=== PATIENT | male | born 2000 | race African-American/Black ===

== ENCOUNTER 2022-04-06 20:47 | Inpatient (IN) ==
[2022-04-06 21:33] LABS: BUN Creatinine Ratio 16.9 (10-20); Calcium 10.9 mg/dl (8.5-10.1); Creatinine Clr Calc Pharmacy 53.7 ml/min; Est GFR (African American) 45.9 ml/min; Est GFR (Non-African American) 39.6 ml/min
[2022-04-06 21:34] LABS: Bilirubin,Total 1.6 mg/dl (0.2-1.0); Total Protein 9.7 gm/dl (6.0-8.3)
[2022-04-06 21:44] LABS: Albumin Globulin Ratio 1.9 (0.9-2); Albumin Level 6.4 gm/dl (3.4-5.0); Globulin 3.3 gm/dl (2.5-4.0)
[2022-04-06] MEDS ORDERED: HYDROmorphone INJ 1 MG/ML SYRINGE IV STA (21:44)
[2022-04-06] MEDS ORDERED: SODIUM CHLORIDE 0.9% 1000ML 2,000 ML IV ONE (21:44)
[2022-04-06] MEDS ORDERED: diphenhydrAMINE 50 MG/ML VIAL IV STA (21:44)
[2022-04-06] MEDS ORDERED: PROCHLORPERAZINE 1 ML IV ONE (21:44)
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
[2022-04-06 22:21] LABS: Hematocrit (blood only) 49.4 % (40.1-51.0); Hemoglobin 18.9 g/dl (14.0-18.0); Mean Corpuscular Hemoglobin 32.1 pg (25.0-34.0); Mean Corpuscular Hgb Conc 38.3 g/dL (32.0-36.0); Mean Platelet Volume 11.2 fL (9.4-12.4); Platelet Count 295 K/uL (130-400); RDW Coefficient of Variation 12.1 % (11.5-14.5); RDW Standard Deviation 36.8 fL (36.4-46.3); Red Blood Count 5.88 M/uL (4.63-6.08); White Blood Count 23.48 K/ul (4.8-10.8)
[2022-04-06 22:22] LABS: Basophils # (auto) 0.04 K/uL (0-0.2); Basophils % (auto) 0.2 %; Eosinophils # (auto) 0.01 K/uL (0-0.50); Immature Granulocytes % (auto) 0.9 %; Lymphocytes # (auto) 3.03 K/uL (1.2-3.4); Lymphocytes % (auto) 12.9 %; Monocytes # (auto) 2.79 K/uL (0.24-0.82); Monocytes % (auto) 11.9 %; Neutrophils # (auto) 17.41 K/uL (1.4-6.5); Neutrophils % (auto) 74.1 %
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
[2022-04-06] MEDS ORDERED: PIPERACILLIN/TAZOBACTAM 4.5 GM/120 ML BAG IV ONE (22:28)
--- NOTE | 2022-04-06 23:39 | CT Scan Report ---
CT chest diagnostic wo con CT DOSE: 189.19 mGy.cm CLINICAL HISTORY: 21 years-old Male with vomiting, pneumomediastinum on ct a/p. Sepsis. Acute nausea with vomiting. TECHNIQUE: Multiaxial CT images of the chest were performed without contrast. A dose lowering techni que was utilized adhering to the principles of ALARA. COMPARISON: CT abdomen and pelvis of same day FINDINGS: There is a battery pack within the subcutaneous left anterior chest with partially imaged l shweta extending superiorly outside the [id number]. Unremarkable thyroid. Residual thymic tissue of the anterior mediastinum. There is no lymphadenopathy. The heart is normal in size without pericardia l effusion. Unremarkable thoracic aorta and pulmonary artery. Small to moderate amount of pneumomedia stinum is noted, probably involving the middle mediastinum tracking within the bronchi within the catalina g bases. No definite acute soft tissue injury identified. No pneumothorax, pleural effusion, airspace consolidation or overt pulmonary edema. There are a few t iny subpleural blebs within the lung apices. The central airways are patent. Mild nonspecific distal esophageal wall thickening. The imaged upper abdomen is otherwise unremarkable. Mild asymmetric soft tissue prominence of the left sternocleidomastoid. No acute fracture. IMPRESSION: 1. Small to moderate amount of pneumomediastinum of unknown etiology. This is likely from an occult b ronchoalveolar injury. There is mild distal esophageal wall thickening, however there is no periesoph ageal stranding or pleural effusion identified. 2. No pneumothorax. ACT 112: Negative or not required by law. Electronically signed by: Leland Aragon M.D. 04/06/2022 11:37 PM
[2022-04-06] MEDS: SODIUM CHLORIDE 0.9% 1000ML 1,000 ML IV SCH (23:45)
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
[2022-04-07] MEDS ORDERED: ACETAMINOPHEN 325 MG TAB PO PRN (02:41)
[2022-04-07] MEDS ORDERED: Patient's ALLERGY Info needs ENTERED STA (04:47)
[2022-04-07] MEDS ORDERED: POTASSIUM CHLORIDE 10 MEQ TABCR PO STA (04:51)
[2022-04-07] MEDS: ONDANSETRON INJ 2 MG/ML 2 ML VIAL IV PRN (06:40)
[2022-04-07 07:20] LABS: Basophils # (auto) 0.05 K/uL (0-0.2); Basophils % (auto) 0.3 %; Eosinophils # (auto) 0.02 K/uL (0-0.50); Eosinophils % (auto) 0.1 %; Hematocrit (blood only) 42.9 % (40.1-51.0); Hemoglobin 15.4 g/dl (14.0-18.0); Immature Granulocytes # (auto) 0.08 K/uL (0.00-0.02); Immature Granulocytes % (auto) 0.5 %; Lymphocytes # (auto) 4.61 K/uL (1.2-3.4); Lymphocytes % (auto) 30.6 %; Mean Corpuscular Hemoglobin 31.2 pg (25.0-34.0); Mean Corpuscular Hgb Conc 35.9 g/dL (32.0-36.0); Mean Platelet Volume 10.4 fL (9.4-12.4); Monocytes # (auto) 1.75 K/uL (0.24-0.82); Monocytes % (auto) 11.6 %; Neutrophils # (auto) 8.57 K/uL (1.4-6.5); Neutrophils % (auto) 56.9 %; Platelet Count 278 K/uL (130-400); RDW Coefficient of Variation 12.1 % (11.5-14.5); RDW Standard Deviation 38.8 fL (36.4-46.3); Red Blood Count 4.93 M/uL (4.63-6.08); White Blood Count 15.08 K/ul (4.8-10.8)
[2022-04-07 07:36] LABS: INR 1.1 (0.9-1.1); Prothrombin Time 11.9 Seconds (9.0-12.0)
[2022-04-07] MEDS: SODIUM CHLORIDE 0.9% 1000ML 1,000 ML IV SCH (08:04)
[2022-04-07 08:19] LABS: Albumin Globulin Ratio 1.8 (0.9-2); Albumin Level 4.8 gm/dl (3.4-5.0); BUN Creatinine Ratio 22.1 (10-20); Bilirubin,Total 1.7 mg/dl (0.2-1.0); Creatinine Clr Calc Pharmacy 85.4 ml/min; Est GFR (African American) 81.5 ml/min; Est GFR (Non-African American) 70.3 ml/min; Globulin 2.7 gm/dl (2.5-4.0); Potassium 3.2 mmol/L (3.5-5.1); Total Protein 7.5 gm/dl (6.0-8.3)
[2022-04-07] MEDS: PROCHLORPERAZINE 10 MG in SYRINGE 8 ML IV PRN (08:43)
[2022-04-07] MEDS ORDERED: cefTRIAXone SODIUM 1,000 MG in DEXTROSE 5% 50 ML IV SCH (09:00)
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
[2022-04-07] MEDS ORDERED: MoRPHine SULFATE 4 MG/ML 1 ML CARP\\VIAL IV STA (11:45)
[2022-04-07] MEDS ORDERED: ACETAMINOPHEN 1,000 MG/100 ML VIAL IV PRN (14:58)
[2022-04-07] MEDS ORDERED: FAMOTIDINE 20 MG in SYRINGE 3 ML IV ONE (15:15)
[2022-04-07] MEDS: ONDANSETRON INJ 2 MG/ML 2 ML VIAL IV SCH ×2 (15:50→20:33)
[2022-04-07] MEDS: LACTATED RINGER'S 1,000 ML IV SCH (15:50)
[2022-04-07] MEDS: DICLOFENAC SOD 1% GEL 100 GM TUBE EXT SCH ×2 (17:58→20:36)
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
[2022-04-07] MEDS: MoRPHine SULFATE 4 MG/ML 1 ML CARP\\VIAL IV PRN (20:01)
[2022-04-07] MEDS: DIVALPROEX EXTENDED RELEASE 250 MG TABCR PO SCH (20:33)
[2022-04-07] MEDS: PANTOprazole 40 MG TAB PO SCH (20:33)
[2022-04-07] MEDS: FAMOTIDINE 20 MG in SYRINGE 3 ML IV SCH (20:33)
[2022-04-08] MEDS ORDERED: diphenhydrAMINE 50 MG/ML VIAL IV ONE (00:06)
[2022-04-08] MEDS: LACTATED RINGER'S 1,000 ML IV SCH ×4 (01:00→22:15)
[2022-04-08] MEDS: ONDANSETRON INJ 2 MG/ML 2 ML VIAL IV SCH ×2 (02:54→08:41)
[2022-04-08 06:16] LABS: Basophils # (auto) 0.02 K/uL (0-0.2); Basophils % (auto) 0.2 %; Eosinophils # (auto) 0.07 K/uL (0-0.50); Eosinophils % (auto) 0.8 %; Hematocrit (blood only) 36.4 % (40.1-51.0); Hemoglobin 12.9 g/dl (14.0-18.0); Immature Granulocytes # (auto) 0.03 K/uL (0.00-0.02); Immature Granulocytes % (auto) 0.3 %; Lymphocytes # (auto) 4.37 K/uL (1.2-3.4); Lymphocytes % (auto) 49.2 %; Mean Corpuscular Hemoglobin 31.7 pg (25.0-34.0); Mean Corpuscular Hgb Conc 35.4 g/dL (32.0-36.0); Mean Corpuscular Volume 89.4 fL (80.0-100.0); Mean Platelet Volume 10.3 fL (9.4-12.4); Monocytes % (auto) 10.1 %; Neutrophils % (auto) 39.4 %; Platelet Count 193 K/uL (130-400); RDW Coefficient of Variation 11.9 % (11.5-14.5); RDW Standard Deviation 39.2 fL (36.4-46.3); Red Blood Count 4.07 M/uL (4.63-6.08); White Blood Count 8.89 K/ul (4.8-10.8)
[2022-04-08 06:55] LABS: BUN Creatinine Ratio 18.8 (10-20); Calcium 8.5 mg/dl (8.5-10.1); Creatinine Clr Calc Pharmacy 143.4 ml/min; Est GFR (African American) 142.3 ml/min; Est GFR (Non-African American) 122.8 ml/min; Potassium 3.4 mmol/L (3.5-5.1)
--- NOTE | 2022-04-08 07:20 | Electrocardiogram Report ---
Test Reason : Blood Pressure : / mmHG Vent. Rate : 056 BPM Atrial Rate : 056 BPM P-R Int : 142 ms QRS Dur : 090 ms QT Int : 430 ms P-R-T Axes : 083 085 068 degrees QTc Int : 414 ms Sinus bradycardia Nonspecific ST abnormality Abnormal ECG No previous ECGs available Confirmed by Ayo Carmona ([id number]) on 04/08/2022 7:19:36 AM Referred By: REFERRED SELF Confirmed By:Valentino Carmona
[2022-04-08] MEDS: DICLOFENAC SOD 1% GEL 100 GM TUBE EXT SCH ×4 (08:41→21:27)
[2022-04-08] MEDS: FAMOTIDINE 20 MG in SYRINGE 3 ML IV SCH ×2 (08:41→21:27)
[2022-04-08] MEDS ORDERED: diphenhydrAMINE Capsule 25 MG CAP PO PRN (09:24)
[2022-04-08] MEDS: PANTOprazole 40 MG TAB PO SCH ×2 (10:32→21:28)
[2022-04-08] MEDS: NICOTINE 21 MG/24 HR TDSY TD SCH (10:32)
[2022-04-08] MEDS: ONDANSETRON INJ 2 MG/ML 2 ML VIAL IV PRN ×2 (14:13→21:29)
--- NOTE | 2022-04-08 18:11 | Hospitalist Progress Note ---
Date of Service April 08, 2022 Assessment & Plan (1) Intractable nausea and vomiting: Plan: Differential appears to be peptic ulcer disease versus cannabis hyperemesis versus gastroparesis (versus some elements of any or all combined) -- For now symptom control is improving, continue current care but advance diet. Consult GI for evaluation and consideration of EGD. If EGD performed and negative, then would probably proceed to nuclear medicine gastric emptying s tudy, and if those are both negative, then likely arrive at a diagnosis of cannabis hyperemesis (to the best i can tell on brief literature review, it does not appear that cannabis hyperemesis commonly causes gastroparesis - so would look at them as different pathologies). Discussed all of this with patient/significant otherdiscussed differentials and at least moderate detail, and discussed that once we arrived at a final diagnosis we would certainly discuss in more depth. He/she both expressed a good understanding of all of above as well as appreciation for care. -- Continue current acid suppression, nausea control, pain controlgiven that he is doing better. (2) Renal insufficiency: Plan: Creatinine 2.25 with unknown baseline but suspect this is all acute renal failure due to dehydrationespecially given his improvement with IV fluids. Continue fluid support until his p.o. intake improves more. Creatinine now 0.85 (3) Pneumomediastinum: Plan: Small to moderate pneumomediastinum noted on CT Pain control, supportive care, time. Esophagram to rule out any sort of tear/leak type pathophysiology to be done tomorrowwas unable to be done yesterday or today. (4) Trigger point of abdomen: Plan: Given the location and the severe tenderness of his trigger point, I suspect that it has a "perpetuating" affect on his nausea and abdominal painalthough I doubt it is the "root cause". At any rate, it is firm and often tender enough that I suspect if we do not treat it concomitantly he will probably have subpar resolution of symptoms. Suspect that it is caused by essentially a constant viscerosomatic reflex from what ever the final etiology of his intractable nausea and vomiting turns out to be; from their somatic visceral reflux from the trigger points would be perpetuating the nausea. For now Voltaren gel 4 times daily, anticipate injecting in the near future if his symptoms do not improve enough. Discussed this again today (5) Seizure disorder: Plan: Valproic acid unknown dosing with subtherapeutic level at 30. will order at low dosing for now until home dosing can be confirmed has brain stimulator device (6) Rhabdomyolysis: Plan: Creatinine kinase 1313 initially - improving. very mild. doubt this caused the renal insufficiency (was likely prerenal mechanism from dehydration) (7) Leukocytosis: Plan: no clear s/s or focused findings to suggest bacterial infection - suspect demargination from vomiting/physiologic stress. White count continues to improve off of antibiotics. Continue to follow Plan DVT proph - ambulation Admission and Anticipated Discharge Date Admission Date: April 07, 2022 Subjective Feeling better currently. Nausea and vomiting has calm downhas not vomited since probably yesterday. Tolerating clear liquids well and wonders if he could try normal food. Really appreciative of care, work-up, differentials, etc. Significant other presentupdated her to the best of my ability and to both her and patient's satisfaction. Overall acutely he is feeling better. Chronically they certainly both harbor concerns given that this has been going on for quite a while. His significant other actually points out that while he remembered yesterday this largely starting in July, she remembered actually to a degree he was already struggling with nausea and vomiting issues as far back as April 2021. Review of Systems Review of Systems: All systems reviewed & are unremarkable except as noted in HPI & below Physical Exam Physical Exam: In general he is awake and alert pleasant no distress. HEENT normocephalic atraumatic mucous membranes moist. Breathing unlabored no accessory muscle use good effort. Skin shows no rashes no pallor or icterus. Neuro without focal deficits. Results & Data Results & Data ([facility]) Vital Signs (Past 12 Hours) Vital Signs Temp Pulse Pulse Resp BP Pulse Ox O2 Del Method 04/08/22 15:13 98.1 F 62 17 133/74 99 Room Air 04/08/22 11:04 97.9 F 63 18 126/77 99 Room Air 04/08/22 08:29 Room Air 04/08/22 07:30 58 L 04/08/22 07:24 98.8 F 65 16 113/71 97 Room Air PG Care Time/CCT Total # of Minutes Spent Total Time Spent with Patient: Total time spent is greater than 50% in coordination of care (as documented) at patient's floor/unit and/or counseling patient: Prolonged Care Time Time in approximately 12:40 PM, time out approximately 1:20 PMgreater than 30 minutes [id number]. Coding Level of Care Code 66030 Subseq Hosp Care Lvl 3 Diagnoses Intractable nausea and vomiting R11.2 Renal insufficiency N28.9 Pneumomediastinum J98.2 Trigger point of abdomen R10.9 Seizure disorder G40.909 Rhabdomyolysis M62.82 Rhabdomyolysis type: non-traumatic Leukocytosis D72.829 (1) Rhabdomyolysis Rhabdomyolysis type: non-traumatic Qualified Code(s): M62.82 - Rhabdomyolysis
--- NOTE | 2022-04-08 18:15 | Billing Data ---
Date of Service April 08, 2022 Coding Level of Care Code 27596 Prolonged Care (int'l)
--- NOTE | 2022-04-08 18:38 | Communication Note ---
Date of Service: April 08, 2022 Nursing noted that patient reported bloody bowel movement. Otherwise appears to be stable. Adds another reason for endoscopic work-up. Prior red blood per rectumfollow hemodynamics, follow CBC, GI eval, anticipate endoscopic work-up.
[2022-04-08] MEDS: MoRPHine SULFATE 4 MG/ML 1 ML CARP\\VIAL IV PRN (18:48)
[2022-04-08] MEDS: DIVALPROEX EXTENDED RELEASE 250 MG TABCR PO SCH (21:27)
[2022-04-09] MEDS: PROCHLORPERAZINE 10 MG in SYRINGE 8 ML IV PRN (01:04)
[2022-04-09] MEDS: LACTATED RINGER'S 1,000 ML IV SCH ×2 (06:03→14:15)
[2022-04-09 06:31] LABS: Basophils # (auto) 0.03 K/uL (0-0.2); Basophils % (auto) 0.3 %; Eosinophils # (auto) 0.11 K/uL (0-0.50); Eosinophils % (auto) 1.2 %; Hemoglobin 12.6 g/dl (14.0-18.0); Immature Granulocytes # (auto) 0.03 K/uL (0.00-0.02); Immature Granulocytes % (auto) 0.3 %; Lymphocytes # (auto) 4.03 K/uL (1.2-3.4); Lymphocytes % (auto) 45.5 %; Mean Corpuscular Hemoglobin 31.2 pg (25.0-34.0); Mean Corpuscular Volume 89.1 fL (80.0-100.0); Mean Platelet Volume 10.6 fL (9.4-12.4); Monocytes # (auto) 0.76 K/uL (0.24-0.82); Monocytes % (auto) 8.6 %; Neutrophils % (auto) 44.1 %; Platelet Count 198 K/uL (130-400); RDW Coefficient of Variation 11.7 % (11.5-14.5); RDW Standard Deviation 37.5 fL (36.4-46.3); Red Blood Count 4.04 M/uL (4.63-6.08); White Blood Count 8.86 K/ul (4.8-10.8)
[2022-04-09 06:59] LABS: BUN Creatinine Ratio 11.5 (10-20); Calcium 8.5 mg/dl (8.5-10.1); Creatinine Clr Calc Pharmacy 156.3 ml/min; Est GFR (African American) 147.5 ml/min; Est GFR (Non-African American) 127.2 ml/min; Potassium 3.3 mmol/L (3.5-5.1)
--- NOTE | 2022-04-09 07:13 | Hospitalist Progress Note ---
Date of Service April 09, 2022 Assessment & Plan (1) Intractable nausea and vomiting: Plan: Differential appears to be peptic ulcer disease versus cannabis hyperemesis versus gastroparesis (versus some elements of any or all combined) -- For now symptom control is improving, continue current care but advance diet. Consult GI for evaluation and consideration of EGD. If EGD performed and negative, then would probably proceed to nuclear medicine gastric emptying study, and if those are both negative, then likely arrive at a diagnosis of cannabis hyperemesis (to the best i can tell on brief literature review, it does not appear that cannabis hyperemesis commonly causes gastroparesis - so would look at them as different pathologies). Discussed all of this with patient/significant otherdiscussed differentials and at least moderate detail, and discussed that once we arrived at a final diagnosis we would certainly discuss in more depth. He/she both expressed a good understanding of all of above as well as appreciation for care. -- Continue current acid suppression, nausea control, pain controlgiven that he is doing better. (2) Renal insufficiency: Plan: Creatinine 2.25 with unknown baseline but suspect this is all acute renal failure due to dehydrationespecially given his improvement with IV fluids. Continue fluid support until his p.o. intake improves more. Creatinine now 0.85 (3) Pneumomediastinum: Plan: Small to moderate pneumomediastinum noted on CT Pain control, supportive care, time. Esophagram to rule out any sort of tear/leak type pathophysiology - done 04/09. [] no evidence of esophageal injury (4) Trigger point of abdomen: Plan: Given the location and the severe tenderness of his trigger point, I suspect that it has a "perpetuating" affect on his nausea and abdominal painalthough I doubt it is the "root cause". At any rate, it is firm and often tender enough that I suspect if we do not treat it concomitantly he will probably have subpar resolution of symptoms. Suspect that it is caused by essentially a constant viscerosomatic reflex from what ever the final etiology of his intractable nausea and vomiting turns out to be; from their somatic visceral reflux from the trigger points would be perpetuating the nausea. For now Voltaren gel 4 times daily, anticipate injecting in the near future if his symptoms do not improve enough. (5) Seizure disorder: Plan: Valproic acid unknown dosing with subtherapeutic level at 30. will order at low dosing for now until home dosing can be confirmed has brain stimulator device (6) Rhabdomyolysis: Plan: Creatinine kinase 1313 initially - improving. very mild. doubt this caused the renal insufficiency (was likely prerenal mechanism from dehydration) (7) Leukocytosis: Plan: no clear s/s or focused findings to suggest bacterial infection - suspect demarg ination from vomiting/physiologic stress. White count continues to improve off of antibiotics. Continue to follow Plan DVT proph - ambulation Admission and Anticipated Discharge Date Admission Date: April 07, 2022 Subjective Patient is doing okay today. He did have some abdominal discomfort overnight, relieved by PRN pain meds. Patient has been tolerating his diet. Ready for procedure this AM. GI chat Review of Systems Review of Systems: See above. Physical Exam Physical Exam: well appearing male in NAD resp: CTAB no increased work of breathing cv: RRR no murmurs rubs or gallops abd: soft, nontender Psychiatric: A+Ox3, euthymic affect Results & Data Results & Data ([facility]) Vital Signs (Past 12 Hours) Vital Signs Temp Pulse BP Pulse Ox O2 Del Method 04/08/22 21:57 37.4 C 63 135/78 100 Room Air Laboratory Results 04/09/22 04/09/22 Range/Units 05:34 05:34 WBC 8.86 (4.8-10.8) K/ul RBC 4.04 L (4.63-6.08) M/uL Hgb 12.6 L (14.0-18.0) g/dl Hct 36.0 L (40.1-51.0) % MCV 89.1 (80.0-100.0) fL MCH 31.2 (25.0-34.0) pg MCHC 35.0 (32.0-36.0) g/dL RDW Std Deviation 37.5 (36.4-46.3) fL RDW Coeff of Rosalia 11.7 (11.5-14.5) % Plt Count 198 (130-400) K/uL MPV 10.6 (9.4-12.4) fL Immature Gran % (Auto) 0.3 % Neut % (Auto) 44.1 % Lymph % (Auto) 45.5 % [place] % (Auto) 8.6 % Eos % (Auto) 1.2 % Baso % (Auto) 0.3 % Neut # (Auto) 3.90 (1.4-6.5) K/uL Lymph # (Auto) 4.03 H (1.2-3.4) K/uL [place] # (Auto) 0.76 (0.24-0.82) K/uL Eos # (Auto) 0.11 (0-0.50) K/uL Baso # (Auto) 0.03 (0-0.2) K/uL Immature Gran # (Auto) 0.03 H (0.00-0.02) K/uL Sodium 141 (136-145) mmol/L Potassium 3.3 L (3.5-5.1) mmol/L Chloride 106 (98-107) mmol/L Carbon Dioxide 31 (21-32) mmol/L Anion Gap 4 (3-11) BUN 9 (6-23) mg/dl Creatinine 0.78 (0.6-1.4) mg/dl Est Cr Clr Drug Dosing 156.3 ml/min Est GFR ( Amer) 147.5 ml/min Est GFR (Non-Af Amer) 127.2 ml/min BUN/Creatinine Ratio 11.5 (10-20) Glucose 105 H (70-99(Fasting)) mg/dl Calcium 8.5 (8.5-10.1) mg/dl Diagnostic Findings FINDINGS: The patient swallowed 150 cc of water-soluble contrast. The esophagus is normal in course, caliber, motility. No extraluminal contrast to suggest a leak/perforation. Left upper chest implanted device is noted. IMPRESSION: No evidence for esophageal injury. (1) Rhabdomyolysis Rhabdomyolysis type: non-traumatic Qualified Code(s): M62.82 - Rhabdomyolysis
[2022-04-09] MEDS: MoRPHine SULFATE 4 MG/ML 1 ML CARP\\VIAL IV PRN (07:23)
[2022-04-09] MEDS: NICOTINE 21 MG/24 HR TDSY TD SCH (07:29)
[2022-04-09] MEDS: DICLOFENAC SOD 1% GEL 100 GM TUBE EXT SCH ×2 (07:30→13:11)
[2022-04-09] MEDS: PANTOprazole 40 MG TAB PO SCH (07:30)
[2022-04-09] MEDS ORDERED: POTASSIUM CHLORIDE CRTAB 20 MEQ TABCR PO STA (07:36)
[2022-04-09] MEDS: FAMOTIDINE 20 MG in SYRINGE 3 ML IV SCH (08:40)
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
[2022-04-09] MEDS: ONDANSETRON INJ 2 MG/ML 2 ML VIAL IV PRN (11:01)
--- NOTE | 2022-04-09 11:43 | Fluoroscopy Report ---
FL barium swallow w/o air CLINICAL HISTORY: pneumomediastinum. Assess for esophageal injury. COMPARISON STUDY: Chest CT 04/06/2022. FLUOROSCOPY TIME: 0.7 minutes. 14 fluoroscopic spot images of the chest were submitted.. FINDINGS: The patient swallowed 150 cc of water-soluble contrast. The esophagus is normal in course, caliber, motility. No extraluminal contrast to suggest a leak/perforation. Left upper chest implanted device is noted. IMPRESSION: No evidence for esophageal injury. ACT 112: Negative or not required by law. Electronically signed by: Bhupendra Mccracken M.D. 04/09/2022 11:41 AM
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
== END 2022-04-09 16:27 | disposition home or self-care (01) | DRG 200 ==
LOC: ED 20:47 → 4W 20:47 → SUATTDRO 04-07 01:14 → 4W 04-07 05:00 → SUATTDRO 04-07 18:41 → 3E 04-08 18:21
DX: K31.84 Gastroparesis; J98.2 Interstitial emphysema; F17.290 Nicotine dependence, other tobacco product, uncomplicated; R11.2 Nausea with vomiting, unspecified; M62.82 Rhabdomyolysis; G40.909 Epilepsy, unspecified, not intractable, without status epilepticus; D72.829 Elevated white blood cell count, unspecified; F12.90 Cannabis use, unspecified, uncomplicated; Z96.82 Presence of neurostimulator; Z98.890 Other specified postprocedural states; K92.1 Melena; Z87.828 Personal history of other (healed) physical injury and trauma; Z79.899 Other long term (current) drug therapy; N17.9 Acute kidney failure, unspecified; K21.9 Gastro-esophageal reflux disease without esophagitis; K27.9 Peptic ulcer, site unspecified, unspecified as acute or chronic, without hemorrhage or perforation; E86.0 Dehydration; R10.84 Generalized abdominal pain; F17.210 Nicotine dependence, cigarettes, uncomplicated